=== PATIENT | male | born 1970 | race Caucasian/White ===

== ENCOUNTER → 2017-06-10 | Outpatient (CLI) | payer OTHER ==
[2017-06-10 07:20] LABS: SEMEN WET PREP WBC 0-2 /HPF; WET PREP SPERM RARE/NON-MOTILE /HPF (NONE SEEN)
== END ==
LOC: CLAB 06:49
PROVIDERS: ATTEND Urology
DX: Z30.2 Encounter for sterilization (principal)
CPT/HCPCS: 89321